=== PATIENT | male | born 1975 | race Caucasian/White ===

== ENCOUNTER 2016-06-23 21:31 | Emergency (ER) | payer OTHER ==
[2016-06-23] MEDS ORDERED: NITROGLYCERIN 2% OINT 1 GM *U/D* PKT As Ordered ONE (21:55)
[2016-06-23 22:23] LABS: BASO # 0.1 K/mm3 (0.0-0.2); BASO % 0.8 % (0.0-1.0); EOS # 0.1 K/mm3 (0.0-0.50); EOS % 1.5 % (0.0-3.0); LARGE UNSTAINED CELL # 0.2 K/mm3 (0.0-0.4); LARGE UNSTAINED CELL % 1.8 % (0.0-4.0); LYMPH # 2.5 K/mm3 (1.5-4.5); LYMPH % 27.9 % (24.0-44.0); MEAN CORPUSCULAR HEMOGLOBIN 28.4 pg (27.0-33.0); MEAN CORPUSCULAR HGB CONC 34.2 g/dl (32.0-36.5); MONO # 0.6 K/mm3 (0.0-0.8); MONO % 6.7 % (0.0-5.0); NEUTROPHILS # 5.2 K/mm3 (1.8-7.7); NEUTROPHILS % 61.4 % (36.0-66.0); PLATELET COUNT, AUTOMATED 220 k/mm3 (150-450); RED CELL DISTRIBUTION WIDTH 12.4 % (11.5-14.5); WHITE BLOOD COUNT 8.4 K/mm3 (4.0-10.0)
[2016-06-23] MEDS ORDERED: LABETALOL HCL 100 MG/20 ML VIAL As Ordered ONE (22:27)
[2016-06-23 22:36] LABS: ANION GAP 10 MEQ/L (8-16); BLOOD UREA NITROGEN 23 MG/DL (7-18); CALCIUM LEVEL 9.2 MG/DL (8.5-10.1); CARBON DIOXIDE LEVEL 26 MEQ/L (21-32); CHLORIDE LEVEL 104 MEQ/L (98-107); CREATININE FOR GFR 1.25 MG/DL (0.70-1.30); GLOMERULAR FILTRATION RATE > 60.0 (>60); GLUCOSE, FASTING 117 MG/DL (70-105); MAGNESIUM LEVEL 1.8 MG/DL (1.8-2.4); PHOSPHORUS LEVEL 3.5 MG/DL (2.5-4.9); POTASSIUM SERUM 3.5 MEQ/L (3.5-5.1); SODIUM LEVEL 140 MEQ/L (136-145)
[2016-06-24] MEDS ORDERED: LABETALOL 100 MG TAB As Ordered ONE (01:33)
--- NOTE | 2016-06-24 01:45 | EDDOCDS ---
Nurse's Notes [facility] Name: Jeff Olivas Age: 41 yrs Sex: Male : 1975 Arrival Date: 06/23/2016 Time: 21:31 Bed 11 Private MD: Orlando Araya Diagnosis: Essential (primary) hypertension-Hypertensive Urgency;Chest pain, unspecified;Other chest pain Presentation: 06/23 21:40 Presenting complaint: Patient states: Chest pain that started at 1800 tonigjht at [facility] work--does not radiate. Also blood pressure is high. Aspirin was not taken prior to arrival. Adult Sepsis Screening: The patient does not have new or worsening altered mentation. Patient's respiratory rate is less than 22. Systolic blood pressure is greater than 100. Patient has a qSOFA score of 0- Negative Sepsis Screen. Suicide/Homicide risk assessment- the patient denies having any suicidal and/or homicidal ideations and does not present with any other emotional, behavioral or mental health complaints. 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 Transition of care: patient was not received from another setting of care. 21:40 Acuity: HEIDI Level 2 [facility] 21:40 Method Of Arrival: Walkin/Carried/Asstd [facility] Triage Assessment: 21:44 General: Appears uncomfortable, Behavior is cooperative. Pain: Location: anterior mcp aspect of left upper chest Pain currently is 3 out of 10 on a pain scale. HIV screening NA for this visit Offered previously. Neurological: No deficits noted. Cardiovascular: Rhythm is sinus rhythm No ectopy. Chest pain is described as mild, radiates Does not radiate. episodes are continuous began 4 hours prior to arrival. Respiratory: Airway is patent Respiratory effort is even, unlabored. Derm: Skin is pink, warm & dry. Historical: - Allergies: no known allergies; - Home Meds: 1. lisinopril 40 mg Oral tab 2 tab once daily 2. metoprolol tartrate 50 mg Oral tab 1 tab once daily 3. hydrochlorothiazide 25 mg Oral tab 1 tab once daily - PMHx: Hypertension; - Social history: Smoking status: other No barriers to communication noted, The patient speaks fluent Chinese. - Family history: Not pertinent. - : The pt / caregiver states he / she is not on anticoagulants. Home medication list is obtained from the patient. - Exposure Risk Screening:: None identified. Screenin:01 Screening information is obtained from the patient. Fall risk: No risks identified. af2 Assistance ADL's: requires no assistance with activities of daily living. Abuse/DV Screen: The patient / caregiver reports he/she is: not in a situation that causes fear, pain or injury. Nutritional screening: No deficits noted. Advance Directives: Currently, there is no health care proxy. home support is adequate. Assessment: 22:00 General: Appears in no apparent distress, comfortable, Behavior is appropriate for age, af2 cooperative. Neurological: Level of Consciousness is awake, alert, obeys commands, Oriented to person, place, time. Cardiovascular: Capillary refill < 3 seconds in bilateral fingers Heart tones S1 S2 present Rhythm is regular Chest pain is described as Pain is 6 out of 10 on a pain scale. began 4 hours prior to arrival. Respiratory: Airway is patent Respiratory effort is even, unlabored, Respiratory pattern is regular, symmetrical, Breath sounds are clear bilaterally. Derm: Skin is intact, is healthy with good turgor, Skin is normal. 22:32 General: Appears in no apparent distress, comfortable, Behavior is appropriate for age, af2 cooperative. Neurological: Level of Consciousness is awake, alert, obeys commands, Oriented to person, place, time. Cardiovascular: Rhythm is regular. Respiratory: Airway is patent Respiratory effort is even, unlabored. Derm: Skin is normal. 23:30 General: Appears in no apparent distress, comfortable, Behavior is appropriate for age, af2 cooperative. Neurological: Level of Consciousness is awake, alert, obeys commands, Oriented to person, place, time. Cardiovascular: Rhythm is regular. Respiratory: Airway is patent Respiratory effort is even, unlabored. Derm: Skin is intact, is healthy with good turgor, Skin is normal. 06/24 00:30 General: Appears in no apparent distress, Behavior is cooperative. Cardiovascular: af2 Rhythm is sinus rhythm Chest pain is denied. 01:42 General: Appears in no apparent distress, comfortable, Behavior is appropriate for age, af2 cooperative. Neurological: Level of Consciousness is awake, alert, obeys commands, Oriented to person, place, time. Cardiovascular: Rhythm is sinus rhythm No ectopy. Respiratory: Airway is patent Respiratory effort is even, unlabored. Derm: Skin is intact, is healthy with good turgor, Skin is normal. Vital Signs: 06/23 21:34 BP 221 / 131 RA Sitting (auto/lg); Pulse 102; Resp 16; Temp 98.9(O); Pulse Ox 97% on sew R/A; Weight 117.93 kg; Height 5 ft. 11 in. (180.34 cm); Pain 07/21; 21:35 BP 205 / 141 LA Sitting (auto/lg); sew 21:54 BP 192 / 128 (auto/); af2 21:54 Pulse 90 MON; Resp 18 S; Pulse Ox 92% on R/A; af2 22:09 BP 176 / 106 (auto/); af2 22:09 Pulse 84 MON; Resp 18 S; Pulse Ox 95% on R/A; af2 22:24 BP 168 / 95 (auto/); af2 22:24 Pulse 88 MON; Resp 18 S; Pulse Ox 96% on R/A; af2 22:39 BP 153 / 87 (auto/); af2 22:39 Pulse 80 MON; Resp 18 S; Pulse Ox 93% on R/A; af2 22:54 BP 157 / 90 (auto/); af2 22:54 Pulse 80 MON; Resp 18 S; Pulse Ox 95% on R/A; af2 23:09 BP 160 / 100 (auto/); af2 23:09 Pulse 76 MON; Resp 18 S; Pulse Ox 95% on R/A; af2 23:24 BP 160 / 104 (auto/); af2 23:24 Pulse 76 MON; Resp 18 S; Pulse Ox 94% on R/A; af2 23:39 BP 142 / 92 (auto/); af2 23:39 Pulse 74 MON; Resp 18 S; Pulse Ox 95% on R/A; af2 23:54 BP 156 / 93 (auto/); af2 23:54 Pulse 78 MON; Resp 18 S; Pulse Ox 94% on R/A; af2 06/24 00:09 BP 145 / 87 (auto/); af2 00:09 Pulse 78 MON; Resp 18 S; Pulse Ox 95% on R/A; af2 01:44 BP 144 / 84; Pulse 78; Resp 18 S; Temp 98.0(TE); Pulse Ox 96% on R/A; af2 06/23 21:34 Body Mass Index 36.26 (117.93 kg, 180.34 cm) sew Vitals: 06/23 21:34 Log In Time: June 23, 2016 at 21:31. RN notified that patient meets Red Flag sew criteria. ED Course: 21:33 Patient visited by Joselyn Domingo. sew 21:33 Patient moved to Waiting sew 21:34 Orlando Araya is Private Physician. sew 21:35 Patient visited by Joselyn Domingo. sew 21:36 Avril Torres RN is Primary Nurse. sew 21:36 Patient moved to 11 sew 21:42 Triage Initiated mcp 21:45 Franklyn Garcia DO is Attending Physician. mm11 21:45 Patient visited by Franklyn Garcia DO. mm11 21:45 Patient visited by Michelle Ortiz RN. mcp 21:46 Ayad Sutherland DO is PHCP. gk1 21:47 EKG done. (by ED staff). Reviewed by Franklyn Garcia DO. jmv 22:01 Patient visited by Avril Torres RN. af2 22:01 Inserted saline lock: 18 gauge in left antecubital area and blood collected. The af2 patient tolerated the procedure well. 22:12 Patient visited by Ayad Sutherland DO. gk1 22:12 Patient visited by Ayad Sutherland DO. gk1 22:16 Patient visited by Avril Torres RN. af2 22:33 Patient visited by Avril Torres RN. af2 22:50 Patient visited by Ayad Sutherland DO. gk1 23:04 [facility] Payment Agreement was scanned into Verac[employer] and attached to record. gjb 23:53 Patient visited by Franklyn Garcia DO. mm11 02 00:00 Patient visited by Avril Torres RN. af2 00:11 EKG done. (by ED staff). Reviewed by Franklyn Garcia DO. jmv 00:15 CARDIAC INJURY PROFILE Sent. af2 00:15 TROPONIN Sent. af2 00:17 Patient visited by Avril Torres RN. af2 00:17 Patient visited by Homer Haney PCA. jmv 01:04 Patient visited by Avril Torres RN. af2 01:11 Mer Ramirez is Referral Physician. gk1 01:12 Grayson Camarena MD is Referral Physician. gk1 01:43 Discontinued IV lock intact, bleeding controlled, pressure dressing applied, No af2 redness/swelling at site. No procedures done that require assistance. 01:45 The patient / caregiver is instructed regarding the plan of care and ED course. Cardiac af2 monitor on. Pulse ox on. NIBP on. Administered Medications: 06/23 21:59 Drug: Nitro-Bid 1 inches [Nitro-Bid 2 % transdermal ointment (1 inches)] Route: af2 Transdermal; Site: anterior chest wall; 22:32 Drug: Labetalol 10 mg [labetalol 5 mg/mL intravenous solution (2 mL)] Route: IVP; Rate: af2 bolus; Infused Over: 2 mins; Site: left antecubital; 06/24 01:41 Drug: Labetalol 100 mg [labetalol 100 mg tablet (1 tabs)] Route: PO; af2 Order Results: Lab Order: Basic Metabolic Profile; SPEC'M 06/23/16 21:46 Test: GLUCOSE, FASTING; Value: 117; Range: 70-105; Abnormal: Above high normal; Units: MG/DL; Status: F Test: BLOOD UREA NITROGEN; Value: 23; Range: 7-18; Abnormal: Above high normal; Units: MG/DL; Status: F Test: CREATININE FOR GFR; Value: 1.25; Range: 0.70-1.30; Units: MG/DL; Status: F Test: GLOMERULAR FILTRATION RATE; Value: > 60.0; Range: >60; Status: F Test: SODIUM LEVEL; Value: 140; Range: 136-145; Units: MEQ/L; Status: F Test: POTASSIUM SERUM; Value: 3.5; Range: 3.5-5.1; Units: MEQ/L; Status: F Test: CHLORIDE LEVEL; Value: 104; Range: 98-107; Units: MEQ/L; Status: F Test: CARBON DIOXIDE LEVEL; Value: 26; Range: 21-32; Units: MEQ/L; Status: F Test: ANION GAP; Value: 10; Range: 8-16; Units: MEQ/L; Status: F Test: CALCIUM LEVEL; Value: 9.2; Range: 8.5-10.1; Units: MG/DL; Status: F Test Note: ; Units are mL/min/1.73 m2 Chronic Kidney Disease Staging per NKF: Stage I & II GFR >=60 Normal to Mildly Decreased Stage III GFR 30-59 Moderately Decreased Stage IV GFR 15-29 Severely Decreased Stage V GFR <15 Very Little GFR Left ESRD GFR <15 on LEARNING SUPPORT RESOURCE ROOM TEACHER Lab Order: CBC with Diff; [facility]EN[facility] 06/23/16 21:46 Test: WHITE BLOOD COUNT; Value: 8.4; Range: 4.0-10.0; Units: K/mm3; Status: F Test: RED BLOOD COUNT; Value: 5.06; Range: 4.30-6.10; Units: M/mm3; Status: F Test: HEMOGLOBIN; Value: 14.3; Range: 14.0-18.0; Units: g/dl; Status: F Test: HEMATOCRIT; Value: 42.0; Range: 42.0-52.0; Units: %; Status: F Test: MEAN CORPUSCULAR VOLUME; Value: 83.0; Range: 80.0-96.0; Units: fl; Status: F Test: MEAN CORPUSCULAR HEMOGLOBIN; Value: 28.4; Range: 27.0-33.0; Units: pg; Status: F Test: MEAN CORPUSCULAR HGB CONC; Value: 34.2; Range: 32.0-36.5; Units: g/dl; Status: F Test: RED CELL DISTRIBUTION WIDTH; Value: 12.4; Range: 11.5-14.5; Units: %; Status: F Test: PLATELET COUNT, AUTOMATED; Value: 220; Range: 150-450; Units: k/mm3; Status: F Test: NEUTROPHILS %; Value: 61.4; Range: 36.0-66.0; Units: %; Status: F Test: LYMPH %; Value: 27.9; Range: 24.0-44.0; Units: %; Status: F Test: MONO %; Value: 6.7; Range: 0.0-5.0; Abnormal: Above high normal; Units: %; Status: F Test: EOS %; Value: 1.5; Range: 0.0-3.0; Units: %; Status: F Test: BASO %; Value: 0.8; Range: 0.0-1.0; Units: %; Status: F Test: LARGE UNSTAINED CELL %; Value: 1.8; Range: 0.0-4.0; Units: %; Status: F Test: NEUTROPHILS #; Value: 5.2; Range: 1.8-7.7; Units: K/mm3; Status: F Test: LYMPH #; Value: 2.5; Range: 1.5-4.5; Units: K/mm3; Status: F Test: MONO #; Value: 0.6; Range: 0.0-0.8; Units: K/mm3; Status: F Test: EOS #; Value: 0.1; Range: 0.0-0.50; Units: K/mm3; Status: F Test: BASO #; Value: 0.1; Range: 0.0-0.2; Units: K/mm3; Status: F Test: LARGE UNSTAINED CELL #; Value: 0.2; Range: 0.0-0.4; Units: K/mm3; Status: F Lab Order: Cardiac Injury Profile; [facility]' 06/23/16 21:46 Test: CPK CREATINE PHOSPHOKINASE; Value: 120; Range: 39-308; Units: U/L; Status: F Test: CK-MB VALUE MASS; Value: 1.3; Range: 0.0-3.6; Units: NG/ML; Status: F Test: MB/CK RELATIVE INDEX; Value: 1.08; Range: < OR =4; Status: F Test Note: ; DIAGNOSIS CRITERIA MMB ng/ml Relative Index (RI) NON-AMI < or = 5 N/A LUCERO ZONE > 5 < or = 4 AMI > 5 > 4 Lab Order: Troponin; [facility]' 06/23/16 21:46 Test: TROPONIN I; Value: < 0.02; Range: < 0.10; Units: NG/ML; Status: F Test Note: ; Troponin I Reference Interval for [place] LOCI: 99th Percentile= 0.00-0.045 ng/ml Risk Stratification: <= 0.10 ng/ml Decreased Risk for Adverse Clinical Events. 0.10-1.50 ng/ml Increased Risk for Adverse Clinical Events. Evaluation of additional criterion and/or repeat testing in 2-6 hours is suggested to rule out myocardial damage. >= 1.50 ng/ml Indicative of Myocardial Injury. Lab Order: Magnesium Level; [facility] 06/23/16 21:46 Test: MAGNESIUM LEVEL; Value: 1.8; Range: 1.8-2.4; Units: MG/DL; Status: F Lab Order: Phosphorous Level; [facility] 06/23/16 21:46 Test: PHOSPHORUS LEVEL; Value: 3.5; Range: 2.5-4.9; Units: MG/DL; Status: F Lab Order: CARDIAC INJURY PROFILE; [facility] 06/23/16 00:08 Test: CPK CREATINE PHOSPHOKINASE; Value: 106; Range: 39-308; Units: U/L; Status: F Test: CK-MB VALUE MASS; Value: 1.0; Range: 0.0-3.6; Units: NG/ML; Status: F Test: MB/CK RELATIVE INDEX; Value: 0.94; Range: < OR =4; Status: F Test Note: ; DIAGNOSIS CRITERIA MMB ng/ml Relative Index (RI) NON-AMI < or = 5 N/A LUCERO ZONE > 5 < or = 4 AMI > 5 > 4 Lab Order: TROPONIN; [facility] 06/23/16 00:08 Test: TROPONIN I; Value: < 0.02; Range: < 0.10; Units: NG/ML; Status: F Test Note: ; Troponin I Reference Interval for [place] LOCI: 99th Percentile= 0.00-0.045 ng/ml Risk Stratification: <= 0.10 ng/ml Decreased Risk for Adverse Clinical Events. 0.10-1.50 ng/ml Increased Risk for Adverse Clinical Events. Evaluation of additional criterion and/or repeat testing in 2-6 hours is suggested to rule out myocardial damage. >= 1.50 ng/ml Indicative of Myocardial Injury. Outcome: 01:13 Discharge ordered by Provider. gk1 01:44 Discharge Assessment: Patient awake, alert and oriented x 3. No cognitive and/or af2 functional deficits noted. Patient verbalized understanding of disposition instructions. patient administered narcotics - no. The following High Risk Discharge criteria are identified: None. Discharged to home ambulatory. Condition: stable. Discharge instructions given to patient, Instructed on discharge instructions, follow up and referral plans. medication usage, Demonstrated understanding of instructions, medications, Pt was receptive of discharge instructions/ teaching. No special radiology studies were completed. Property :Personal belongings accompany Pt. 01:45 Patient left the ED. af2 Signatures: Michelle Ortiz, RN RN Franklyn Kennedy, DO DO mm11 Joselyn Domingo AmberRN RN af2 Pamela Chacon Jose, AIDEN LEASING DIRECTOR maddi Sutherland, Ayad, DO DO gk1 MTDD
--- NOTE | 2016-06-24 01:45 | EDDOCDS ---
Physician Documentation [facility] Name: Jeff Olivas Age: 41 yrs Sex: Male : 1975 Arrival Date: 06/23/2016 Time: 21:31 Bed 11 Private MD: Orlando Araya Disposition: 06/24 01:18 I have independently interviewed and examined the patient, and I agree with the mm11 investigation, diagnosis and treatment plan as documented by the Resident. Disposition: 06/24/16 01:13 Discharged to Home/Self Care. Impression: Essential (primary) hypertension - Hypertensive Urgency, Chest pain, unspecified, Other chest pain. - Condition is Stable. - Discharge Instructions: Nonspecific Chest Pain, Hypertension, Nonspecific Chest Pain, [id number], Hypertension, [id number], DASH Eating Plan. - Prescriptions for labetalol 100 mg Oral tablet - take 1 tablet by ORAL route 2 times per day; 60 tablet. - Medication Reconciliation, Local Pharmacy Hours form. - Follow up: Mer Ramirez; When: Call to arrange an appointment; Reason: Recheck today's complaints, Continuance of care, To establish care. Follow up: Grayson Camarena MD; When: 1 week; Reason: Recheck today's complaints, Continuance of care. - Problem is new. - Symptoms have improved. - Notes: Follow up with PCP within 1 week and call to arrange an appointment with Cardiology in 1 week for further evaluation and management. Come back to the ED, if any worsening of your condition. Historical: - Allergies: no known allergies; - Home Meds: 1. lisinopril 40 mg Oral tab 2 tab once daily 2. metoprolol tartrate 50 mg Oral tab 1 tab once daily 3. hydrochlorothiazide 25 mg Oral tab 1 tab once daily - PMHx: Hypertension; - Social history: Smoking status: other No barriers to communication noted, The patient speaks fluent Kyrgyz. - Family history: Not pertinent. - : The pt / caregiver states he / she is not on anticoagulants. Home medication list is obtained from the patient. - Exposure Risk Screening:: None identified. Vital Signs: 06/23 21:34 BP 221 / 131 RA Sitting (auto/lg); Pulse 102; Resp 16; Temp 98.9(O); Pulse Ox 97% on sew R/A; Weight 117.93 kg / 259.99 lbs; Height 5 ft. 11 in. (180.34 cm); Pain 3/; 21:35 BP 205 / 141 LA Sitting (auto/lg); sew 21:54 BP 192 / 128 (auto/); af2 21:54 Pulse 90 MON; Resp 18 S; Pulse Ox 92% on R/A; af2 22:09 BP 176 / 106 (auto/); af2 22:09 Pulse 84 MON; Resp 18 S; Pulse Ox 95% on R/A; af2 22:24 BP 168 / 95 (auto/); af2 22:24 Pulse 88 MON; Resp 18 S; Pulse Ox 96% on R/A; af2 22:39 BP 153 / 87 (auto/); af2 22:39 Pulse 80 MON; Resp 18 S; Pulse Ox 93% on R/A; af2 22:54 BP 157 / 90 (auto/); af2 22:54 Pulse 80 MON; Resp 18 S; Pulse Ox 95% on R/A; af2 23:09 BP 160 / 100 (auto/); af2 23:09 Pulse 76 MON; Resp 18 S; Pulse Ox 95% on R/A; af2 23:24 BP 160 / 104 (auto/); af2 23:24 Pulse 76 MON; Resp 18 S; Pulse Ox 94% on R/A; af2 23:39 BP 142 / 92 (auto/); af2 23:39 Pulse 74 MON; Resp 18 S; Pulse Ox 95% on R/A; af2 23:54 BP 156 / 93 (auto/); af2 23:54 Pulse 78 MON; Resp 18 S; Pulse Ox 94% on R/A; af2 06/24 00:09 BP 145 / 87 (auto/); af2 00:09 Pulse 78 MON; Resp 18 S; Pulse Ox 95% on R/A; af2 01:44 BP 144 / 84; Pulse 78; Resp 18 S; Temp 98.0(TE); Pulse Ox 96% on R/A; af2 06/23 21:34 Body Mass Index 36.26 (117.93 kg, 180.34 cm) sew MDM: 06/23 21:40 ECG WITH READING ER PHYS+CARDIAG ordered. EDMS 21:47 Nitro-Bid Ointment 2 % 1 inches Transdermal once ordered. mm11 22:13 Labetalol 10 mg IVP at bolus once over 2 mins ordered. gk1 22:16 Team Cdl Driver/Pulse Ox/q 30 min VS ordered. gk1 22:16 IV Saline Lock ordered. gk1 22:16 Rhythm Strip to chart ordered. gk1 22:16 Undress patient appropriately for examination ordered. gk1 22:17 Basic Metabolic Profile Ordered. EDMS 22:17 CBC with Diff Ordered. EDMS 22:17 Cardiac Injury Profile Ordered. EDMS 22:17 Troponin Ordered. EDMS 22:17 Magnesium Level Ordered. EDMS 22:17 Phosphorous Level Ordered. EDMS 22:17 Creatine Phosphokinase Ordered. EDMS 22:18 Chest, 2 View (pa\E\lat) Ordered. EDMS 22:50 Basic Metabolic Profile Reviewed. gk1 22:50 CBC with Diff Reviewed. gk1 22:50 Cardiac Injury Profile Reviewed. gk1 22:50 Troponin Reviewed. gk1 22:50 Magnesium Level Reviewed. gk1 22:50 Phosphorous Level Reviewed. gk1 23:02 Financial registration complete. [facility] 23:04 [facility] Payment Agreement was scanned into [employer] and attached to record. gjb 23:57 Repeat EKG (put time details section) ordered. mm11 23:57 Redraw CIP &Troponin (put time in details section) ordered. mm11 06/24 00:00 Redraw CIP &Troponin (put time in details section) complete. jlm 00:00 Repeat EKG (put time details section) complete. jlm 00:00 ELECTROCARDIOGRAM ADULT ordered. EDMS 00:01 CARDIAC INJURY PROFILE Ordered. EDMS 00:01 TROPONIN Ordered. EDMS 00:47 TROPONIN Reviewed. gk1 00:55 TROPONIN Reviewed. gk1 00:55 CARDIAC INJURY PROFILE Reviewed. gk1 01:04 Labetalol 100 mg PO once ordered. gk1 Administered Medications: 06/23 21:59 Drug: Nitro-Bid 1 inches [Nitro-Bid 2 % transdermal ointment (1 inches)] Route: af2 Transdermal; Site: anterior chest wall; 22:32 Drug: Labetalol 10 mg [labetalol 5 mg/mL intravenous solution (2 mL)] Route: IVP; Rate: af2 bolus; Infused Over: 2 mins; Site: left antecubital; 06/24 01:41 Drug: Labetalol 100 mg [labetalol 100 mg tablet (1 tabs)] Route: PO; af2 Signatures: Dispatcher [employer] Michelle Gupta, Franklyn Brown RN, mcp, DO mm11 Monica Walsh, Rock Singer Unit Avril Hernandez RN RN af2 Pamela Chacon Gurpreet, DO DO gk1 The chart was reviewed and I authenticate all verbal orders and agree with the evaluation and treatment provided.Attachments: 06/23 23:04 [facility] Payment Agreement tacho MTDD
--- NOTE | 2016-06-24 08:54 | ECGEPIP ---
Stationary ECG Study [facility] Test Date: 2016-06-24 Pat Name: JESE PAGAN Department: Room: - Gender: M Terra Cotta Mold Maker: lashell : 1975 Requested By: EMERGENCY ROOM Order Number: [id number] Reading MD: Debby Dougherty Measurements Intervals [place] Rate: 70 P: 50 SD: 183 QRS: -5 QRSD: 103 T: 75 QT: 412 QTc: 445 Interpretive Statements SINUS RHYTHM T-WAVE ABNORMALITY LEFT AXIS NO PRIOR Electronically Signed On 06-24-2016 8:53:48 EST by Debby Dougherty
--- NOTE | 2016-06-24 10:28 | REP ---
CHEST PA AND LATERAL: 06/23/2016. Clinical history: Chest pain. Findings: No prior study. Two view show lungs well inflated and without infiltrate, effusion, atelectasis or mass. The heart, mediastinal and hilar contours are normal. There is no free air, focal bone lesion or pneumothorax. Impression: 1. No acute cardiopulmonary change. Signed by Aquilino Nicole MD 06/24/2016 07:31 P
--- NOTE | 2016-06-24 12:54 | ECGEPIP ---
Stationary ECG Study [facility] - ED Test Date: 2016-06-23 Pat Name: JESE PAGAN Department: Room: - Gender: M Edi Developer: lashell : 1975 Requested By: PARRISH Abreu Order Number: [id number] Reading MD: Mayra Roach Measurements Intervals [place] Rate: 98 P: 47 KS: 212 QRS: -15 QRSD: 105 T: 53 QT: 352 QTc: 450 Interpretive Statements SINUS RHYTHM WITH FIRST DEGREE AV BLOCK LAD BASELINE WANDERING MAY AFFECT READING NO OLD ECG FOR COMPARISON Electronically Signed On 06-24-2016 12:54:22 EST by Mayra Roach
--- NOTE | 2016-06-26 02:46 | EDDOCDS ---
Physician Documentation [facility] Name: Jeff Olivas Age: 41 yrs Sex: Male : 1975 Arrival Date: 06/23/2016 Time: 21:31 Bed 11 Private MD: Orlando Araya Disposition: 06/24 01:18 I have independently interviewed and examined the patient, and I agree with the mm11 investigation, diagnosis and treatment plan as documented by the Resident. Disposition: 06/24/16 01:13 Discharged to Home/Self Care. Impression: Essential (primary) hypertension - Hypertensive Urgency, Chest pain, unspecified, Other chest pain. - Condition is Stable. - Discharge Instructions: Nonspecific Chest Pain, Hypertension, Nonspecific Chest Pain, [id number], Hypertension, Unij-ty-[id number], DASH Eating Plan. - Prescriptions for labetalol 100 mg Oral tablet - take 1 tablet by ORAL route 2 times per day; 60 tablet. - Medication Reconciliation, Local Pharmacy Hours form. - Follow up: Mer Ramirez; When: Call to arrange an appointment; Reason: Recheck today's complaints, Continuance of care, To establish care. Follow up: Grayson Camarena MD; When: 1 week; Reason: Recheck today's complaints, Continuance of care. - Problem is new. - Symptoms have improved. - Notes: Follow up with PCP within 1 week and call to arrange an appointment with Cardiology in 1 week for further evaluation and management. Come back to the ED, if any worsening of your condition. Historical: - Allergies: no known allergies; - Home Meds: 1. lisinopril 40 mg Oral tab 2 tab once daily 2. metoprolol tartrate 50 mg Oral tab 1 tab once daily 3. hydrochlorothiazide 25 mg Oral tab 1 tab once daily - PMHx: Hypertension; - Social history: Smoking status: other No barriers to communication noted, The patient speaks fluent Kinyarwanda. - Family history: Not pertinent. - : The pt / caregiver states he / she is not on anticoagulants. Home medication list is obtained from the patient. - Exposure Risk Screening:: None identified. Vital Signs: 06/23 21:34 BP 221 / 131 RA Sitting (auto/lg); Pulse 102; Resp 16; Temp 98.9(O); Pulse Ox 97% on sew R/A; Weight 117.93 kg / 259.99 lbs; Height 5 ft. 11 in. (180.34 cm); Pain 3/; 21:35 BP 205 / 141 LA Sitting (auto/lg); sew 21:54 BP 192 / 128 (auto/); af2 21:54 Pulse 90 MON; Resp 18 S; Pulse Ox 92% on R/A; af2 22:09 BP 176 / 106 (auto/); af2 22:09 Pulse 84 MON; Resp 18 S; Pulse Ox 95% on R/A; af2 22:24 BP 168 / 95 (auto/); af2 22:24 Pulse 88 MON; Resp 18 S; Pulse Ox 96% on R/A; af2 22:39 BP 153 / 87 (auto/); af2 22:39 Pulse 80 MON; Resp 18 S; Pulse Ox 93% on R/A; af2 22:54 BP 157 / 90 (auto/); af2 22:54 Pulse 80 MON; Resp 18 S; Pulse Ox 95% on R/A; af2 23:09 BP 160 / 100 (auto/); af2 23:09 Pulse 76 MON; Resp 18 S; Pulse Ox 95% on R/A; af2 23:24 BP 160 / 104 (auto/); af2 23:24 Pulse 76 MON; Resp 18 S; Pulse Ox 94% on R/A; af2 23:39 BP 142 / 92 (auto/); af2 23:39 Pulse 74 MON; Resp 18 S; Pulse Ox 95% on R/A; af2 23:54 BP 156 / 93 (auto/); af2 23:54 Pulse 78 MON; Resp 18 S; Pulse Ox 94% on R/A; af2 06/24 00:09 BP 145 / 87 (auto/); af2 00:09 Pulse 78 MON; Resp 18 S; Pulse Ox 95% on R/A; af2 01:44 BP 144 / 84; Pulse 78; Resp 18 S; Temp 98.0(TE); Pulse Ox 96% on R/A; af2 06/23 21:34 Body Mass Index 36.26 (117.93 kg, 180.34 cm) sew MDM: 06/23 21:40 ECG WITH READING ER PHYS+CARDIAG ordered. EDMS 21:47 Nitro-Bid Ointment 2 % 1 inches Transdermal once ordered. mm11 22:13 Labetalol 10 mg IVP at bolus once over 2 mins ordered. gk1 22:16 Flight Control Manager/Pulse Ox/q 30 min VS ordered. gk1 22:16 IV Saline Lock ordered. gk1 22:16 Rhythm Strip to chart ordered. gk1 22:16 Undress patient appropriately for examination ordered. gk1 22:17 Basic Metabolic Profile Ordered. EDMS 22:17 CBC with Diff Ordered. EDMS 22:17 Cardiac Injury Profile Ordered. EDMS 22:17 Troponin Ordered. EDMS 22:17 Magnesium Level Ordered. EDMS 22:17 Phosphorous Level Ordered. EDMS 22:17 Creatine Phosphokinase Ordered. EDMS 22:18 Chest, 2 View (pa\E\lat) Ordered. EDMS 22:50 Basic Metabolic Profile Reviewed. gk1 22:50 CBC with Diff Reviewed. gk1 22:50 Cardiac Injury Profile Reviewed. gk1 22:50 Troponin Reviewed. gk1 22:50 Magnesium Level Reviewed. gk1 22:50 Phosphorous Level Reviewed. gk1 23:02 Financial registration complete. b 23:04 [facility] Payment Agreement was scanned into [employer] and attached to record. gjb 23:57 Repeat EKG (put time details section) ordered. mm11 23:57 Redraw CIP &Troponin (put time in details section) ordered. mm11 0211 00:00 Redraw CIP &Troponin (put time in details section) complete. jlm 00:00 Repeat EKG (put time details section) complete. jlm 00:00 ELECTROCARDIOGRAM ADULT ordered. EDMS 00:01 CARDIAC INJURY PROFILE Ordered. EDMS 00:01 TROPONIN Ordered. EDMS 00:47 TROPONIN Reviewed. gk1 00:55 TROPONIN Reviewed. gk1 00:55 CARDIAC INJURY PROFILE Reviewed. gk1 01:04 Labetalol 100 mg PO once ordered. gk1 10:15 T-Sheet-- Draft Copy was scanned into [employer] and attached to record. gb 16:38 ECG/EKG was scanned into [employer] and attached to record. gb 16:38 Trend VS was scanned into [employer] and attached to record. gb Administered Medications: 06/23 21:59 Drug: Nitro-Bid 1 inches [Nitro-Bid 2 % transdermal ointment (1 inches)] Route: af2 Transdermal; Site: anterior chest wall; 22:32 Drug: Labetalol 10 mg [labetalol 5 mg/mL intravenous solution (2 mL)] Route: IVP; Rate: af2 bolus; Infused Over: 2 mins; Site: left antecubital; 06/24 01:41 Drug: Labetalol 100 mg [labetalol 100 mg tablet (1 tabs)] Route: PO; af2 Signatures: Dispatcher [employer] Michelle Gupta, Kamryn Davila RN, mcp, Robert Reg gb Franklyn Garcia, DO mm11 Monica Walsh, Dynamics Ax Technical Architect Unit Avril Hernandez RN RN af2 Pamela Chacon gjb Ayad Sutherland, DO DO gk1 The chart was reviewed and I authenticate all verbal orders and agree with the evaluation and treatment provided.Attachments: 06/23 23:04 [facility] Payment Agreement gjb 06/24 10:15 T-Sheet-- Draft Copy gb 16:38 ECG/EKG gb Chart Complete MTDD
--- NOTE | 2016-06-26 02:46 | EDDOCDS ---
Nurse's Notes [facility] Name: Jese Olivas Age: 41 yrs Sex: Male : 1975 Arrival Date: 06/23/2016 Time: 21:31 Bed 11 Private MD: Orlando Araya Diagnosis: Essential (primary) hypertension-Hypertensive Urgency;Chest pain, unspecified;Other chest pain Presentation: 06/23 21:40 Presenting complaint: Patient states: Chest pain that started at [address] at [facility] work--does not radiate. Also blood pressure is high. Aspirin was not taken prior to arrival. Adult Sepsis Screening: The patient does not have new or worsening altered mentation. Patient's respiratory rate is less than 22. Systolic blood pressure is greater than 100. Patient has a qSOFA score of 0- Negative Sepsis Screen. Suicide/Homicide risk assessment- the patient denies having any suicidal and/or homicidal ideations and does not present with any other emotional, behavioral or mental health complaints. Status: Patient is not a pharmaceutical service representative or dependent. Transition of care: patient was not received from another setting of care. 21:40 Acuity: HEIDI Level 2 [facility] 21:40 Method Of Arrival: Walkin/Carried/Asstd [facility] Triage Assessment: 21:44 General: Appears uncomfortable, Behavior is cooperative. Pain: Location: anterior mcp aspect of left upper chest Pain currently is 3 out of 10 on a pain scale. HIV screening NA for this visit Offered previously. Neurological: No deficits noted. Cardiovascular: Rhythm is sinus rhythm No ectopy. Chest pain is described as mild, radiates Does not radiate. episodes are continuous began 4 hours prior to arrival. Respiratory: Airway is patent Respiratory effort is even, unlabored. Derm: Skin is pink, warm & dry. Historical: - Allergies: no known allergies; - Home Meds: 1. lisinopril 40 mg Oral tab 2 tab once daily 2. metoprolol tartrate 50 mg Oral tab 1 tab once daily 3. hydrochlorothiazide 25 mg Oral tab 1 tab once daily - PMHx: Hypertension; - Social history: Smoking status: other No barriers to communication noted, The patient speaks fluent Swedish. - Family history: Not pertinent. - : The pt / caregiver states he / she is not on anticoagulants. Home medication list is obtained from the patient. - Exposure Risk Screening:: None identified. Screenin:01 Screening information is obtained from the patient. Fall risk: No risks identified. af2 Assistance ADL's: requires no assistance with activities of daily living. Abuse/DV Screen: The patient / caregiver reports he/she is: not in a situation that causes fear, pain or injury. Nutritional screening: No deficits noted. Advance Directives: Currently, there is no health care proxy. home support is adequate. Assessment: 22:00 General: Appears in no apparent distress, comfortable, Behavior is appropriate for age, af2 cooperative. Neurological: Level of Consciousness is awake, alert, obeys commands, Oriented to person, place, time. Cardiovascular: Capillary refill < 3 seconds in bilateral fingers Heart tones S1 S2 present Rhythm is regular Chest pain is described as Pain is 6 out of 10 on a pain scale. began 4 hours prior to arrival. Respiratory: Airway is patent Respiratory effort is even, unlabored, Respiratory pattern is regular, symmetrical, Breath sounds are clear bilaterally. Derm: Skin is intact, is healthy with good turgor, Skin is normal. 22:32 General: Appears in no apparent distress, comfortable, Behavior is appropriate for age, af2 cooperative. Neurological: Level of Consciousness is awake, alert, obeys commands, Oriented to person, place, time. Cardiovascular: Rhythm is regular. Respiratory: Airway is patent Respiratory effort is even, unlabored. Derm: Skin is normal. 23:30 General: Appears in no apparent distress, comfortable, Behavior is appropriate for age, af2 cooperative. Neurological: Level of Consciousness is awake, alert, obeys commands, Oriented to person, place, time. Cardiovascular: Rhythm is regular. Respiratory: Airway is patent Respiratory effort is even, unlabored. Derm: Skin is intact, is healthy with good turgor, Skin is normal. 06/24 00:30 General: Appears in no apparent distress, Behavior is cooperative. Cardiovascular: af2 Rhythm is sinus rhythm Chest pain is denied. 01:42 General: Appears in no apparent distress, comfortable, Behavior is appropriate for age, af2 cooperative. Neurological: Level of Consciousness is awake, alert, obeys commands, Oriented to person, place, time. Cardiovascular: Rhythm is sinus rhythm No ectopy. Respiratory: Airway is patent Respiratory effort is even, unlabored. Derm: Skin is intact, is healthy with good turgor, Skin is normal. Vital Signs: 06/23 21:34 BP 221 / 131 RA Sitting (auto/lg); Pulse 102; Resp 16; Temp 98.9(O); Pulse Ox 97% on sew R/A; Weight 117.93 kg; Height 5 ft. 11 in. (180.34 cm); Pain 07/21; 21:35 BP 205 / 141 LA Sitting (auto/lg); sew 21:54 BP 192 / 128 (auto/); af2 21:54 Pulse 90 MON; Resp 18 S; Pulse Ox 92% on R/A; af2 22:09 BP 176 / 106 (auto/); af2 22:09 Pulse 84 MON; Resp 18 S; Pulse Ox 95% on R/A; af2 22:24 BP 168 / 95 (auto/); af2 22:24 Pulse 88 MON; Resp 18 S; Pulse Ox 96% on R/A; af2 22:39 BP 153 / 87 (auto/); af2 22:39 Pulse 80 MON; Resp 18 S; Pulse Ox 93% on R/A; af2 22:54 BP 157 / 90 (auto/); af2 22:54 Pulse 80 MON; Resp 18 S; Pulse Ox 95% on R/A; af2 23:09 BP 160 / 100 (auto/); af2 23:09 Pulse 76 MON; Resp 18 S; Pulse Ox 95% on R/A; af2 23:24 BP 160 / 104 (auto/); af2 23:24 Pulse 76 MON; Resp 18 S; Pulse Ox 94% on R/A; af2 23:39 BP 142 / 92 (auto/); af2 23:39 Pulse 74 MON; Resp 18 S; Pulse Ox 95% on R/A; af2 23:54 BP 156 / 93 (auto/); af2 23:54 Pulse 78 MON; Resp 18 S; Pulse Ox 94% on R/A; af2 06/24 00:09 BP 145 / 87 (auto/); af2 00:09 Pulse 78 MON; Resp 18 S; Pulse Ox 95% on R/A; af2 01:44 BP 144 / 84; Pulse 78; Resp 18 S; Temp 98.0(TE); Pulse Ox 96% on R/A; af2 06/23 21:34 Body Mass Index 36.26 (117.93 kg, 180.34 cm) sew Vitals: 06/23 21:34 Log In Time: June 23, 2016 at 21:31. RN notified that patient meets Red Flag sew criteria. ED Course: 21:33 Patient visited by Joselyn Domingo. sew 21:33 Patient moved to Waiting sew 21:34 Orlando Araya is Private Physician. sew 21:35 Patient visited by Joselyn Domingo. sew 21:36 Avril Torres RN is Primary Nurse. sew 21:36 Patient moved to 11 sew 21:42 Triage Initiated mcp 21:45 Parrish Garcia DO is Attending Physician. mm11 21:45 Patient visited by Parrish Garcia DO. mm11 21:45 Patient visited by Michelle Ortiz RN. mcp 21:46 Ayad Sutherland DO is PHCP. gk1 21:47 EKG done. (by ED staff). Reviewed by Parrish Garcia DO. jmv 22:01 Patient visited by Avril Torres RN. af2 22:01 Inserted saline lock: 18 gauge in left antecubital area and blood collected. The af2 patient tolerated the procedure well. 22:12 Patient visited by Ayad Sutherland DO. gk1 22:12 Patient visited by Ayad Sutherland DO. gk1 22:16 Patient visited by Avril Torres RN. af2 22:33 Patient visited by Avril Torres RN. af2 22:50 Patient visited by Ayad Sutherland DO. gk1 23:04 [facility] Payment Agreement was scanned into bluebird [employer] and attached to record. gjb 23:53 Patient visited by Parrish Garcia DO. mm11 02 00:00 Patient visited by Avril Torres RN. af2 00:11 EKG done. (by ED staff). Reviewed by Parrish Garcia DO. jmv 00:15 CARDIAC INJURY PROFILE Sent. af2 00:15 TROPONIN Sent. af2 00:17 Patient visited by Avril Torres RN. af2 00:17 Patient visited by Homer Haney PCA. jmv 01:04 Patient visited by Avril Torres RN. af2 01:11 Mer Ramirez is Referral Physician. gk1 01:12 Grayson Camarena MD is Referral Physician. gk1 01:43 Discontinued IV lock intact, bleeding controlled, pressure dressing applied, No af2 redness/swelling at site. No procedures done that require assistance. 01:45 The patient / caregiver is instructed regarding the plan of care and ED course. Cardiac af2 monitor on. Pulse ox on. NIBP on. 09:17 ELECTROCARDIOGRAM ADULT Returned. EDMS 10:15 T-Sheet-- Draft Copy was scanned into bluebird [employer] and attached to record. gb 10:42 Chest, 2 View (pa\E\lat) Returned. EDMS 13:27 EKG-ADULT Returned. EDMS 16:38 ECG/EKG was scanned into [employer] and attached to record. gb 16:38 Trend VS was scanned into bluebird bio and attached to record. gb Administered Medications: 06/23 21:59 Drug: Nitro-Bid 1 inches [Nitro-Bid 2 % transdermal ointment (1 inches)] Route: af2 Transdermal; Site: anterior chest wall; 22:32 Drug: Labetalol 10 mg [labetalol 5 mg/mL intravenous solution (2 mL)] Route: IVP; Rate: af2 bolus; Infused Over: 2 mins; Site: left antecubital; 06/24 01:41 Drug: Labetalol 100 mg [labetalol 100 mg tablet (1 tabs)] Route: PO; af2 Attachments: 16:38 Trend VS gb Order Results: Lab Order: Basic Metabolic Profile; SPEC'M 06/23/16 21:46 Test: GLUCOSE, FASTING; Value: 117; Range: 70-105; Abnormal: Above high normal; Units: MG/DL; Status: F Test: BLOOD UREA NITROGEN; Value: 23; Range: 7-18; Abnormal: Above high normal; Units: MG/DL; Status: F Test: CREATININE FOR GFR; Value: 1.25; Range: 0.70-1.30; Units: MG/DL; Status: F Test: GLOMERULAR FILTRATION RATE; Value: > 60.0; Range: >60; Status: F Test: SODIUM LEVEL; Value: 140; Range: 136-145; Units: MEQ/L; Status: F Test: POTASSIUM SERUM; Value: 3.5; Range: 3.5-5.1; Units: MEQ/L; Status: F Test: CHLORIDE LEVEL; Value: 104; Range: 98-107; Units: MEQ/L; Status: F Test: CARBON DIOXIDE LEVEL; Value: 26; Range: 21-32; Units: MEQ/L; Status: F Test: ANION GAP; Value: 10; Range: 8-16; Units: MEQ/L; Status: F Test: CALCIUM LEVEL; Value: 9.2; Range: 8.5-10.1; Units: MG/DL; Status: F Test Note: ; Units are mL/min/1.73 m2 Chronic Kidney Disease Staging per NKF: Stage I & II GFR >=60 Normal to Mildly Decreased Stage III GFR 30-59 Moderately Decreased Stage IV GFR 15-29 Severely Decreased Stage V GFR <15 Very Little GFR Left ESRD GFR <15 on PLOW SHAKER Lab Order: CBC with Diff; SPEC'M 06/23/16 21:46 Test: WHITE BLOOD COUNT; Value: 8.4; Range: 4.0-10.0; Units: K/mm3; Status: F Test: RED BLOOD COUNT; Value: 5.06; Range: 4.30-6.10; Units: M/mm3; Status: F Test: HEMOGLOBIN; Value: 14.3; Range: 14.0-18.0; Units: g/dl; Status: F Test: HEMATOCRIT; Value: 42.0; Range: 42.0-52.0; Units: %; Status: F Test: MEAN CORPUSCULAR VOLUME; Value: 83.0; Range: 80.0-96.0; Units: fl; Status: F Test: MEAN CORPUSCULAR HEMOGLOBIN; Value: 28.4; Range: 27.0-33.0; Units: pg; Status: F Test: MEAN CORPUSCULAR HGB CONC; Value: 34.2; Range: 32.0-36.5; Units: g/dl; Status: F Test: RED CELL DISTRIBUTION WIDTH; Value: 12.4; Range: 11.5-14.5; Units: %; Status: F Test: PLATELET COUNT, AUTOMATED; Value: 220; Range: 150-450; Units: k/mm3; Status: F Test: NEUTROPHILS %; Value: 61.4; Range: 36.0-66.0; Units: %; Status: F Test: LYMPH %; Value: 27.9; Range: 24.0-44.0; Units: %; Status: F Test: MONO %; Value: 6.7; Range: 0.0-5.0; Abnormal: Above high normal; Units: %; Status: F Test: EOS %; Value: 1.5; Range: 0.0-3.0; Units: %; Status: F Test: BASO %; Value: 0.8; Range: 0.0-1.0; Units: %; Status: F Test: LARGE UNSTAINED CELL %; Value: 1.8; Range: 0.0-4.0; Units: %; Status: F Test: NEUTROPHILS #; Value: 5.2; Range: 1.8-7.7; Units: K/mm3; Status: F Test: LYMPH #; Value: 2.5; Range: 1.5-4.5; Units: K/mm3; Status: F Test: MONO #; Value: 0.6; Range: 0.0-0.8; Units: K/mm3; Status: F Test: EOS #; Value: 0.1; Range: 0.0-0.50; Units: K/mm3; Status: F Test: BASO #; Value: 0.1; Range: 0.0-0.2; Units: K/mm3; Status: F Test: LARGE UNSTAINED CELL #; Value: 0.2; Range: 0.0-0.4; Units: K/mm3; Status: F Lab Order: Cardiac Injury Profile; SPEC'M 06/23/16 21:46 Test: CPK CREATINE PHOSPHOKINASE; Value: 120; Range: 39-308; Units: U/L; Status: F Test: CK-MB VALUE MASS; Value: 1.3; Range: 0.0-3.6; Units: NG/ML; Status: F Test: MB/CK RELATIVE INDEX; Value: 1.08; Range: < OR =4; Status: F Test Note: ; DIAGNOSIS CRITERIA MMB ng/ml Relative Index (RI) NON-AMI < or = 5 N/A LUCERO ZONE > 5 < or = 4 AMI > 5 > 4 Lab Order: Troponin; SPEC'M 06/23/16 21:46 Test: TROPONIN I; Value: < 0.02; Range: < 0.10; Units: NG/ML; Status: F Test Note: ; Troponin I Reference Interval for [employer] LOCI: 99th Percentile= 0.00-0.045 ng/ml Risk Stratification: <= 0.10 ng/ml Decreased Risk for Adverse Clinical Events. 0.10-1.50 ng/ml Increased Risk for Adverse Clinical Events. Evaluation of additional criterion and/or repeat testing in 2-6 hours is suggested to rule out myocardial damage. >= 1.50 ng/ml Indicative of Myocardial Injury. Lab Order: Magnesium Level; [facility]' 06/23/16 21:46 Test: MAGNESIUM LEVEL; Value: 1.8; Range: 1.8-2.4; Units: MG/DL; Status: F Lab Order: Phosphorous Level; [facility] 06/23/16 21:46 Test: PHOSPHORUS LEVEL; Value: 3.5; Range: 2.5-4.9; Units: MG/DL; Status: F Lab Order: CARDIAC INJURY PROFILE; [facility] 06/23/16 00:08 Test: CPK CREATINE PHOSPHOKINASE; Value: 106; Range: 39-308; Units: U/L; Status: F Test: CK-MB VALUE MASS; Value: 1.0; Range: 0.0-3.6; Units: NG/ML; Status: F Test: MB/CK RELATIVE INDEX; Value: 0.94; Range: < OR =4; Status: F Test Note: ; DIAGNOSIS CRITERIA MMB ng/ml Relative Index (RI) NON-AMI < or = 5 N/A LUCERO ZONE > 5 < or = 4 AMI > 5 > 4 Lab Order: TROPONIN; [facility] 06/23/16 00:08 Test: TROPONIN I; Value: < 0.02; Range: < 0.10; Units: NG/ML; Status: F Test Note: ; Troponin I Reference Interval for [employer] [place] LOCI: 99th Percentile= 0.00-0.045 ng/ml Risk Stratification: <= 0.10 ng/ml Decreased Risk for Adverse Clinical Events. 0.10-1.50 ng/ml Increased Risk for Adverse Clinical Events. Evaluation of additional criterion and/or repeat testing in 2-6 hours is suggested to rule out myocardial damage. >= 1.50 ng/ml Indicative of Myocardial Injury. Radiology Order: EKG-ADULT Test: EKG-ADULT REASON FOR EXAMINATION: Chest Pain; Stationary ECG Study; [facility] - ED; ; Test Date: 2016-06-23; Pat Name: JESE OLIVAS Department:; Room: -; Gender: M Energy Assistant: jmaria guadalupe; : 1975 Requested By: PARRISH Abreu; Order Number: [id number] Reading MD: Mayra Roach; Measurements; Intervals [place]; Rate: 98 P: 47; ME: 212 QRS: -15; QRSD: 105 T: 53; QT: 352; QTc: 450; Interpretive Statements; SINUS RHYTHM WITH FIRST DEGREE AV BLOCK; LAD; BASELINE WANDERING MAY AFFECT READING; NO OLD ECG FOR COMPARISON; Electronically Signed On 06-24-2016 12:54:22 EST by Mayra Roach; Radiology Order: Chest, 2 View (pa\E\lat) Test: Chest, 2 View (pa\E\lat) REASON FOR EXAMINATION: Chest Pain; CHEST PA AND LATERAL: 06/23/2016.; ; Clinical history: Chest pain.; ; Findings: No prior study. Two view show lungs well inflated and without; infiltrate, effusion, atelectasis or mass. The heart, mediastinal and hilar; contours are normal. There is no free air, focal bone lesion or pneumothorax.; ; Impression:; ; 1. No acute cardiopulmonary change.; ; ; Signed by; Aquilino Nicole MD 06/24/2016 07:31 P; Radiology Order: ELECTROCARDIOGRAM ADULT Test: ELECTROCARDIOGRAM ADULT REASON FOR EXAMINATION: REPEAT; Stationary ECG Study; [facility]; ; Test Date: 2016-06-24; Pat Name: JESE OLIVAS Department:; Room: -; Gender: M Energy Assistant: jv; : 1975 Requested By: EMERGENCY ROOM; Order Number: [id number] Reading MD: Debby Dougherty; Measurements; Intervals [place]; Rate: 70 P: 50; ME: 183 QRS: -5; QRSD: 103 T: 75; QT: 412; QTc: 445; Interpretive Statements; SINUS RHYTHM T-WAVE ABNORMALITY LEFT AXIS NO PRIOR; ; Electronically Signed On 06-24-2016 8:53:48 EST by Debby Dougherty; Outcome: 01:13 Discharge ordered by Provider. gk1 01:44 Discharge Assessment: Patient awake, alert and oriented x 3. No cognitive and/or af2 functional deficits noted. Patient verbalized understanding of disposition instructions. patient administered narcotics - no. The following High Risk Discharge criteria are identified: None. Discharged to home ambulatory. Condition: stable. Discharge instructions given to patient, Instructed on discharge instructions, follow up and referral plans. medication usage, Demonstrated understanding of instructions, medications, Pt was receptive of discharge instructions/ teaching. No special radiology studies were completed. Property :Personal belongings accompany Pt. 01:45 Patient left the ED. af2 Signatures: Dispatcher [employer] EDMS Michelle Ortiz, RN RN Kamryn Perry, Robert Reg Parrish Veloz, DO DO mm11 Joselyn Domingo Amber, RN RN af2 Pamela Chacon Jose, Ayad Jara, DO DO gk1 Chart Complete ALONSO
--- NOTE | 2016-06-26 02:46 | EDDOCDS ---
Physician Documentation [facility] Name: Jeff Olivas Age: 41 yrs Sex: Male : 1975 Arrival Date: 06/23/2016 Time: 21:31 Bed 11 Private MD: Orlando Araya Disposition: 06/24 01:18 I have independently interviewed and examined the patient, and I agree with the mm11 investigation, diagnosis and treatment plan as documented by the Resident. Disposition: 06/24/16 01:13 Discharged to Home/Self Care. Impression: Essential (primary) hypertension - Hypertensive Urgency, Chest pain, unspecified, Other chest pain. - Condition is Stable. - Discharge Instructions: Nonspecific Chest Pain, Hypertension, Nonspecific Chest Pain, Guyz-gb-Okej, Hypertension, Upqd-kq-Otka, DASH Eating Plan. - Prescriptions for labetalol 100 mg Oral tablet - take 1 tablet by ORAL route 2 times per day; 60 tablet. - Medication Reconciliation, Local Pharmacy Hours form. - Follow up: Mer Ramirez; When: Call to arrange an appointment; Reason: Recheck today's complaints, Continuance of care, To establish care. Follow up: Grayson Camarena MD; When: 1 week; Reason: Recheck today's complaints, Continuance of care. - Problem is new. - Symptoms have improved. - Notes: Follow up with PCP within 1 week and call to arrange an appointment with Cardiology in 1 week for further evaluation and management. Come back to the ED, if any worsening of your condition. Historical: - Allergies: no known allergies; - Home Meds: 1. lisinopril 40 mg Oral tab 2 tab once daily 2. metoprolol tartrate 50 mg Oral tab 1 tab once daily 3. hydrochlorothiazide 25 mg Oral tab 1 tab once daily - PMHx: Hypertension; - Social history: Smoking status: other No barriers to communication noted, The patient speaks fluent Yakut. - Family history: Not pertinent. - : The pt / caregiver states he / she is not on anticoagulants. Home medication list is obtained from the patient. - Exposure Risk Screening:: None identified. Vital Signs: 06/23 21:34 BP 221 / 131 RA Sitting (auto/lg); Pulse 102; Resp 16; Temp 98.9(O); Pulse Ox 97% on sew R/A; Weight 117.93 kg / 259.99 lbs; Height 5 ft. 11 in. (180.34 cm); Pain 3/; 21:35 BP 205 / 141 LA Sitting (auto/lg); sew 21:54 BP 192 / 128 (auto/); af2 21:54 Pulse 90 MON; Resp 18 S; Pulse Ox 92% on R/A; af2 22:09 BP 176 / 106 (auto/); af2 22:09 Pulse 84 MON; Resp 18 S; Pulse Ox 95% on R/A; af2 22:24 BP 168 / 95 (auto/); af2 22:24 Pulse 88 MON; Resp 18 S; Pulse Ox 96% on R/A; af2 22:39 BP 153 / 87 (auto/); af2 22:39 Pulse 80 MON; Resp 18 S; Pulse Ox 93% on R/A; af2 22:54 BP 157 / 90 (auto/); af2 22:54 Pulse 80 MON; Resp 18 S; Pulse Ox 95% on R/A; af2 23:09 BP 160 / 100 (auto/); af2 23:09 Pulse 76 MON; Resp 18 S; Pulse Ox 95% on R/A; af2 23:24 BP 160 / 104 (auto/); af2 23:24 Pulse 76 MON; Resp 18 S; Pulse Ox 94% on R/A; af2 23:39 BP 142 / 92 (auto/); af2 23:39 Pulse 74 MON; Resp 18 S; Pulse Ox 95% on R/A; af2 23:54 BP 156 / 93 (auto/); af2 23:54 Pulse 78 MON; Resp 18 S; Pulse Ox 94% on R/A; af2 06/24 00:09 BP 145 / 87 (auto/); af2 00:09 Pulse 78 MON; Resp 18 S; Pulse Ox 95% on R/A; af2 01:44 BP 144 / 84; Pulse 78; Resp 18 S; Temp 98.0(TE); Pulse Ox 96% on R/A; af2 06/23 21:34 Body Mass Index 36.26 (117.93 kg, 180.34 cm) sew MDM: 06/23 21:40 ECG WITH READING ER PHYS+CARDIAG ordered. EDMS 21:47 Nitro-Bid Ointment 2 % 1 inches Transdermal once ordered. mm11 22:13 Labetalol 10 mg IVP at bolus once over 2 mins ordered. gk1 22:16 Cable Television Technician/Pulse Ox/q 30 min VS ordered. gk1 22:16 IV Saline Lock ordered. gk1 22:16 Rhythm Strip to chart ordered. gk1 22:16 Undress patient appropriately for examination ordered. gk1 22:17 Basic Metabolic Profile Ordered. EDMS 22:17 CBC with Diff Ordered. EDMS 22:17 Cardiac Injury Profile Ordered. EDMS 22:17 Troponin Ordered. EDMS 22:17 Magnesium Level Ordered. EDMS 22:17 Phosphorous Level Ordered. EDMS 22:17 Creatine Phosphokinase Ordered. EDMS 22:18 Chest, 2 View (pa\E\lat) Ordered. EDMS 22:50 Basic Metabolic Profile Reviewed. gk1 22:50 CBC with Diff Reviewed. gk1 22:50 Cardiac Injury Profile Reviewed. gk1 22:50 Troponin Reviewed. gk1 22:50 Magnesium Level Reviewed. gk1 22:50 Phosphorous Level Reviewed. gk1 23:02 Financial registration complete. b 23:04 [facility] Payment Agreement was scanned into [employer] and attached to record. gjb 23:57 Repeat EKG (put time details section) ordered. mm11 23:57 Redraw CIP &Troponin (put time in details section) ordered. mm11 0211 00:00 Redraw CIP &Troponin (put time in details section) complete. jlm 00:00 Repeat EKG (put time details section) complete. jlm 00:00 ELECTROCARDIOGRAM ADULT ordered. EDMS 00:01 CARDIAC INJURY PROFILE Ordered. EDMS 00:01 TROPONIN Ordered. EDMS 00:47 TROPONIN Reviewed. gk1 00:55 TROPONIN Reviewed. gk1 00:55 CARDIAC INJURY PROFILE Reviewed. gk1 01:04 Labetalol 100 mg PO once ordered. gk1 10:15 T-Sheet-- Draft Copy was scanned into [employer] and attached to record. gb 16:38 ECG/EKG was scanned into [employer] and attached to record. gb 16:38 Trend VS was scanned into [employer] and attached to record. gb Administered Medications: 06/23 21:59 Drug: Nitro-Bid 1 inches [Nitro-Bid 2 % transdermal ointment (1 inches)] Route: af2 Transdermal; Site: anterior chest wall; 22:32 Drug: Labetalol 10 mg [labetalol 5 mg/mL intravenous solution (2 mL)] Route: IVP; Rate: af2 bolus; Infused Over: 2 mins; Site: left antecubital; 06/24 01:41 Drug: Labetalol 100 mg [labetalol 100 mg tablet (1 tabs)] Route: PO; af2 Signatures: Dispatcher [employer] Michelle Gupta, Kamryn Davila RN, mcp, Robert Reg gb Franklyn Garcia, DO mm11 Monica Walsh, Legislative Director Unit Avril Hernandez RN RN af2 Pamela Chacon gjb Ayad Sutherland, DO DO gk1 The chart was reviewed and I authenticate all verbal orders and agree with the evaluation and treatment provided.Attachments: 06/23 23:04 [facility] Payment Agreement gjb 06/24 10:15 T-Sheet-- Draft Copy gb 16:38 ECG/EKG gb Chart Complete MTDD
== END 2016-06-24 01:45 | disposition home or self-care (01) ==
LOC: M ED 21:31
DX: I10 Essential (primary) hypertension (principal); R07.89 Other chest pain; Z79.899 Other long term (current) drug therapy

== ENCOUNTER 2016-09-01 14:53 | Emergency (ER) | payer OTHER ==
[~2016-09-01] VITALS: Ht 180.3 cm; Wt 113.4 kg
[2016-09-01] MEDS ORDERED: CHLO50TA PO (15:11)
[2016-09-01] MEDS ORDERED: AMLO10TA2 PO (15:11)
[2016-09-01] MEDS ORDERED: VALS1TAB48 PO (15:11)
[2016-09-01] MEDS ORDERED: LABE10TAB PO (15:11)
[2016-09-01] MEDS ORDERED: NITROGLYCERIN 0.4 MG SUBL TABLET SL PRN (15:30)
[2016-09-01] MEDS ORDERED: ASPIRIN 81 MG CHEW TABLET PO ONE (15:30)
[2016-09-01] MEDS ORDERED: LABETALOL HCL 100 MG/20 ML VIAL IV STA (15:33)
[2016-09-01 15:34] LABS: BASO # 0.1 K/mm3 (0.0-0.2); BASO % 0.8 % (0.0-1.0); EOS # 0.7 K/mm3 (0.0-0.50); EOS % 8.1 % (0.0-3.0); LARGE UNSTAINED CELL # 0.1 K/mm3 (0.0-0.4); LARGE UNSTAINED CELL % 1.3 % (0.0-4.0); LYMPH # 2.2 K/mm3 (1.5-4.5); LYMPH % 22.7 % (24.0-44.0); MEAN CORPUSCULAR HGB CONC 34.6 g/dl (32.0-36.5); MEAN CORPUSCULAR VOLUME 83.9 fl (80.0-96.0); MONO # 0.6 K/mm3 (0.0-0.8); MONO % 6.5 % (0.0-5.0); NEUTROPHILS # 5.6 K/mm3 (1.8-7.7); NEUTROPHILS % 60.5 % (36.0-66.0); PLATELET COUNT, AUTOMATED 200 k/mm3 (150-450); RED CELL DISTRIBUTION WIDTH 12.7 % (11.5-14.5); WHITE BLOOD COUNT 9.2 K/mm3 (4.0-10.0)
[2016-09-01 15:40] VITALS: BP 148/98
[2016-09-01 15:43] LABS: INR 0.95
--- NOTE | 2016-09-01 15:54 | REP ---
Portable chest, AP view, patient sitting: Comparison is the PA and lateral chest dated 06/23/2016. The lung sharma are clear. The cardiac size is normal. The ira, mediastinum, and bony thorax are unremarkable. Impression: Negative portable chest. There is no interval change Signed by Marco Mireles MD 09/01/2016 03:44 P
[2016-09-01 15:57] LABS: ANION GAP 5 MEQ/L (8-16); BLOOD UREA NITROGEN 17 MG/DL (7-18); CALCIUM LEVEL 9.2 MG/DL (8.5-10.1); CARBON DIOXIDE LEVEL 30 MEQ/L (21-32); CHLORIDE LEVEL 102 MEQ/L (98-107); CREATININE FOR GFR 1.03 MG/DL (0.70-1.30); GLOMERULAR FILTRATION RATE > 60.0 (>60); GLUCOSE, FASTING 102 MG/DL (70-105); POTASSIUM SERUM 3.7 MEQ/L (3.5-5.1); SODIUM LEVEL 137 MEQ/L (136-145)
[2016-09-01 16:45] VITALS: BP 126/92
--- NOTE | 2016-09-01 20:39 | ECGEPIP ---
Stationary ECG Study [facility] - ED Test Date: 2016-09-01 Pat Name: JESE PAGAN Department: Room: - Gender: M Distribution Technician: : 1975 Requested By: Joselyn Contreras Order Number: [id number] Reading MD: Joselyn Contreras Measurements Intervals [place] Rate: 67 P: 61 [place]: 199 QRS: 4 QRSD: 102 T: 66 QT: 383 QTc: 405 Interpretive Statements SINUS RHYTHM SIMILAR 06/24/16 Electronically Signed On 09-01-2016 20:39:17 EDT by Joselyn Contreras
== END 2016-09-01 16:45 | disposition home or self-care (01) ==
LOC: M ED 15:34
DX: R07.9 Chest pain, unspecified (principal); I25.10 Atherosclerotic heart disease of native coronary artery without angina pectoris; I10 Essential (primary) hypertension; Z87.891 Personal history of nicotine dependence; Z79.899 Other long term (current) drug therapy

== ENCOUNTER → 2016-10-10 | Outpatient (CLI) | payer OTHER ==
[~2016-10-10] MED LIST: AMLO10TA2 PO; CHLO50TA PO; LABE10TAB PO; VALS1TAB48 PO
--- NOTE | 2016-10-23 07:48 | SLEEPCENT ---
DATE OF PROCEDURE: 10/10/2016 ORDERED BY: Nohemi Aguayo. INTERPRETATION: Nocturnal polysomnography was performed due to concern for the obstructive sleep apnea syndrome in this patient with a history of excessive somnolence and loud snoring. 7 hours and 42 minutes of data were reviewed. There were 317 minutes of sleep identified. Sleep latency was prolonged at 31 minutes. REM latency was prolonged at 189 minutes. Sleep architecture was fragmented with some REM identified late in the study. There were 3 REM periods appreciated. Overall sleep efficiency was 69%. The patient's EKG showed an underlying sinus rhythm with occasional PVCs. Rate variability was seen surrounding respiratory events. Rate ranged 60-82 beats per minute. EEG showed reasonably normal wave forms for awake and sleep. There were 342 respiratory events identified of 10 seconds in duration or greater for an apnea-hypopnea index of 64.6. The events were primarily obstructive not exclusive to sleep stage nor body posture. Arousals with respiratory events occurred 21.4 times per hour and oxygen desaturations were seen into the 70s. Remaining measures of sleep physiology were normal. IMPRESSION: Severe obstructive sleep apnea syndrome (G47.33). Apnea-hypopnea index 64.6. RECOMMENDATION: The patient should be referred for formal sleep evaluation with in laboratory pressure titration at his earliest convenience. In the interim, alcohol and sedative avoidance should be practiced and caution exercised during the operation of motor vehicles. edited: 10/23/2016 1521 tkf MTDD
== END ==
LOC: M SLEEP 19:59
PROVIDERS: ATTEND Nurse Practitioner Adult Health
DX: G47.33 Obstructive sleep apnea (adult) (pediatric) (principal)

== ENCOUNTER → 2016-11-05 | Outpatient (CLI) | payer OTHER ==
--- NOTE | 2016-11-07 09:40 | SLEEPCENT ---
DATE OF STUDY: 11/05/2016 ORDERING PROVIDER: Nohemi Aguayo NP Nocturnal polysomnography was performed for the titration of pressure therapy in this patient with severe obstructive sleep apnea syndrome, apnea-hypopnea index of 64. For testing, the patient was fit with a ResMed Quattro full face mask of medium size. 4 cm of water pressure were applied to the circuit, and the lights were extinguished. 7 hours and 37 minutes of data were reviewed. There were 373 minutes of sleep identified. Sleep latency was mildly prolonged at 19 minutes. Rapid eye movement (REM) latency was normal at 63 minutes. Sleep architecture improved with optimal pressure therapy. There were three REM periods appreciated. Overall sleep efficiency 83.6%. Electrocardiogram (EKG) showed a sinus rhythm with an average heart rate of 62 beats per minute. Electroencephalogram (EEG) showed normal waveforms for awake and sleep. Respiratory events were found best palliated with continuous positive airway pressure (CPAP) at a pressure of +9. There was minimal limb activity. IMPRESSION: Obstructive sleep apnea syndrome (G47.33). RECOMMENDATION: Nightly use of pressure therapy 9 cm of water.
== END ==
LOC: M SLEEP 19:48
PROVIDERS: ATTEND Nurse Practitioner Adult Health
DX: G47.33 Obstructive sleep apnea (adult) (pediatric) (principal)

== ENCOUNTER → 2016-11-08 | Outpatient (REF) | payer OTHER | LOC: M SMT 08:30 | PROVIDERS: ATTEND Urology | DX: Z30.2 Encounter for sterilization (principal) ==

== ENCOUNTER → 2017-01-25 | Outpatient (REF) | payer OTHER ==
[2017-01-25 09:19] LABS: IMMMOTILE SPERM CENTRIFUGED ABSENT (ABSENT); IMMOTILE SPERM ABSENT (ABSENT); MOTILE SPERM ABSENT (ABSENT); MOTILE SPERM CENTRIFUGED ABSENT (ABSENT); SPERM ABNORMAL FORMS WBC'S NOTED
== END ==
LOC: M SMT 08:00
PROVIDERS: ATTEND Urology
DX: Z30.8 Encounter for other contraceptive management (principal)

== ENCOUNTER 2017-07-17 10:14 | Day surgery (SDC) | payer OTHER ==
[2017-07-17] MEDS ORDERED: LIDOCAINE 2% INJ 100 MG/5 ML SDV (FOR ANES.) As Ordered (10:41)
[2017-07-17] MEDS ORDERED: PROPOFOL 200 MG/20 ML VIAL As Ordered ×2 (10:41→11:05)
[2017-07-17] MEDS ORDERED: NS 1,000 ML IV (11:00)
== END 2017-07-17 12:28 | disposition home or self-care (01) ==
LOC: M OPP 10:14
DX: R13.10 Dysphagia, unspecified (principal); F45.8 Other somatoform disorders; K22.8 Other specified diseases of esophagus; K29.70 Gastritis, unspecified, without bleeding; R07.89 Other chest pain; I10 Essential (primary) hypertension; I71.4 Abdominal aortic aneurysm, without rupture; M10.9 Gout, unspecified; K21.9 Gastro-esophageal reflux disease without esophagitis; R12 Heartburn; F41.9 Anxiety disorder, unspecified; G47.30 Sleep apnea, unspecified; R06.83 Snoring; E66.9 Obesity, unspecified; Z79.899 Other long term (current) drug therapy; Z80.8 Family history of malignant neoplasm of other organs or systems
CPT/HCPCS: 43239

== ENCOUNTER → 2019-07-03 | Outpatient (REF) | payer OTHER ==
[~2019-07-03] MED LIST changes: -AMLO10TA2 PO; +AMLO10TA5 PO; +CHLO125TA PO; +MULT1TAB10 PO; +OMEP40CA97 PO; +TARTCAP PO; -VALS1TAB48 PO; +VALS1TAB68 PO; +VITA100067 PO; +[UNRECOGNIZED DRUG - OTHER] PO
== END ==
LOC: M LAB REF 12:26
PROVIDERS: ATTEND Nurse Practitioner Family
DX: M10.9 Gout, unspecified (principal)

== ENCOUNTER → 2020-01-02 | Outpatient (REF) | payer OTHER ==
[~2020-01-02] MED LIST changes: -AMLO10TA5 PO; +AMLO1TAB25 PO
== END ==
LOC: M LAB REF 12:40
PROVIDERS: ATTEND Registered Nurse
DX: M10.9 Gout, unspecified (principal)

== ENCOUNTER → 2020-07-05 | Outpatient (REF) | payer OTHER ==
[~2020-07-05] MED LIST changes: +LABE100T4 PO; -LABE10TAB PO
== END ==
LOC: M LAB REF 12:31
PROVIDERS: ATTEND Registered Nurse
DX: M10.9 Gout, unspecified (principal)

== ENCOUNTER 2020-11-05 03:03 | Emergency (ER) | payer OTHER ==
[~2020-11-05] VITALS: Ht 180.3 cm; Wt 122.4 kg
[~2020-11-05 03:03] MED LIST changes: +OMEP40CA4 PO; -OMEP40CA97 PO
[2020-11-05] MEDS ORDERED: CAND32TA9 PO ×2 (03:21→06:48)
[2020-11-05 03:45] LABS: BASO % 0.3 % (0.0-1.0); EOS % 0.2 % (0.0-3.0); HEMATOCRIT 46.5 % (42.0-52.0); LYMPH # 1.1 10^3/uL (1.5-5.0); LYMPH % 8.8 % (24.0-44.0); MEAN CORPUSCULAR HGB CONC 34.4 g/dl (32.0-36.5); MEAN CORPUSCULAR VOLUME 84.2 fl (80.0-96.0); MONO # 0.6 10^3/uL (0.0-0.8); MONO % 4.3 % (2.0-8.0); NEUTROPHILS # 10.9 10^3/uL (1.5-8.5); PLATELET COUNT, AUTOMATED 246 10^3/uL (150-450); RED BLOOD COUNT 5.52 10^6/uL (4.30-6.10); WHITE BLOOD COUNT 12.7 10^3/uL (4.0-10.0)
[2020-11-05] MEDS ORDERED: MORPHINE 2 MG/ML 1ML VIAL (J2270) IV PRN (04:20)
[2020-11-05 04:21] LABS: ALBUMIN 4.4 GM/DL (3.2-5.2); ALT/SGPT 72 U/L (12-78); BILIRUBIN,DIRECT 0.2 MG/DL (0.0-0.2); BILIRUBIN,TOTAL 0.5 MG/DL (0.2-1.0); BLOOD UREA NITROGEN 17 MG/DL (7-18); CALCIUM LEVEL 9.9 MG/DL (8.5-10.1); CARBON DIOXIDE LEVEL 30 MEQ/L (21-32); CHLORIDE LEVEL 98 MEQ/L (98-107); CREATININE FOR GFR 1.01 MG/DL (0.70-1.30); GLOMERULAR FILTRATION RATE > 60.0 (>60); GLUCOSE, FASTING 148 MG/DL (70-100); LIPASE 99 U/L (73-393); POTASSIUM SERUM 3.8 MEQ/L (3.5-5.1); SODIUM LEVEL 135 MEQ/L (136-145); TOTAL PROTEIN 8.4 GM/DL (6.4-8.2)
[2020-11-05] MEDS ORDERED: GI COCKTAIL 50ML BTL(HYOSCYAMINE/MAALOX/LIDOCAINE VISCOUS)(1:3:1) PO ONE (04:30)
[2020-11-05] MEDS ORDERED: ISOVUE-370 76% 100ML VIAL As Ordered ONE (04:32)
[2020-11-05 04:48] LABS: CK-MB VALUE MASS 1.7 NG/ML (<3.6); CPK CREATINE PHOSPHOKINASE 328 U/L (39-308); MB/CK RELATIVE INDEX 0.52 (< OR =4); TROPONIN I < 0.02 NG/ML (< 0.10)
--- NOTE | 2020-11-05 05:39 | ECGEPIP ---
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
--- NOTE | 2020-11-05 06:08 | REPVR ---
PROCEDURE INFORMATION: Exam: CT Abdomen And Pelvis With Contrast Exam date and time: 11/05/2020 4:27 AM Age: 45 years old Clinical indication: Abdominal pain; Periumbilical TECHNIQUE: Imaging protocol: Computed tomography of the abdomen and pelvis with contrast. Radiation optimization: All CT scans at this facility use at least one of these dose optimization techniques: automated exposure control; mA and/or kV adjustment per patient size (includes targeted exams where dose is matched to clinical indication); or iterative reconstruction. Contrast material: ISO; Contrast volume: 100 ml; Contrast route: INTRAVENOUS (IV); COMPARISON: No relevant prior studies available. FINDINGS: Liver: The liver attenuation is 41 Hounsfield units and the spleen is 98 Hounsfield units. The liver at mid clavicular line measures 13.6 cm. Gallbladder and bile ducts: Normal. No calcified stones. No ductal dilation. Pancreas: Normal. No ductal dilation. Spleen: Normal. No splenomegaly. Adrenal glands: Normal. No mass. Kidneys and ureters: Normal. No hydronephrosis. Stomach and bowel: There are a few colonic diverticula without diverticulitis. Mildly distended segments of lower abdominal small bowel with the de mitosis supplying mesentery and collapsed distal small bowel consistent with a small bowel obstruction. There is a tapering transition anteriorly which corresponds to some wall thickening of the small bowel suggesting enteritis as the etiology for obstruction. The transition is noted on series 202, images # [id number]. Appendix: A normal appendix is seen. Intraperitoneal space: Minimal free fluid in the pelvis which is likely reactive with a Hounsfield measurement of 9. Vasculature: Unremarkable. No abdominal aortic aneurysm. Lymph nodes: Unremarkable. No enlarged lymph nodes. Urinary bladder: Unremarkable as visualized. Reproductive: Unremarkable as visualized. Bones/joints: Unremarkable. No acute fracture. Soft tissues: Unremarkable. IMPRESSION: 1. Small-bowel obstruction with a point of transition deep and to the left of the umbilicus which corresponds to a segment of small bowel wall thickening which may reflect enteritis as the etiology of obstruction. There is edema of the supplying mesentery to the thick walled segments and to a lesser degree the dilated segments of small bowel. 2. Minimal free fluid in the pelvis which is likely reactive. 3. Fatty infiltration of the liver. Electronically signed by: Juan Walsh On 11/05/2020 06:07:40 AM
[2020-11-05] MEDS ORDERED: CHLO25TA PO (06:48)
[2020-11-05] MEDS ORDERED: ALLO10TA PO (06:48)
[2020-11-05] MEDS ORDERED: VITMTA PO (06:48)
[2020-11-05] MEDS ORDERED: FLAX100012 PO (06:48)
[2020-11-05 07:19] LABS: RSV AMPLIFICATION NEGATIVE (NEGATIVE)
[2020-11-05 10:32] LABS: BASO % 0.3 % (0.0-1.0); EOS % 0.1 % (0.0-3.0); HEMATOCRIT 43.7 % (42.0-52.0); LYMPH # 1.4 10^3/uL (1.5-5.0); LYMPH % 14.6 % (24.0-44.0); MEAN CORPUSCULAR HEMOGLOBIN 28.8 pg (27.0-33.0); MEAN CORPUSCULAR HGB CONC 34.3 g/dl (32.0-36.5); MONO # 0.8 10^3/uL (0.0-0.8); MONO % 7.9 % (2.0-8.0); NEUTROPHILS # 7.3 10^3/uL (1.5-8.5); NEUTROPHILS % 76.8 % (36.0-66.0); PLATELET COUNT, AUTOMATED 219 10^3/uL (150-450); WHITE BLOOD COUNT 9.5 10^3/uL (4.0-10.0)
--- NOTE | 2020-11-05 10:47 | REP ---
INDICATION: SBO. COMPARISON: CT earlier today. TECHNIQUE: Frontal view chest, supine and erect views of the abdomen. FINDINGS: There is no evidence of free intraperitoneal air. There are moderately dilated small bowel loops in the abdomen consistent with small bowel obstruction as seen on CT scan. Excreted contrast is seen in a mildly distended urinary bladder. Adjacent phleboliths are seen in the pelvis. There are mild degenerative changes of the spine. No infiltrate is seen in either lung. The heart and mediastinum are unremarkable. IMPRESSION: Moderately dilated small bowel loops in the abdomen consistent with small bowel obstruction, as seen on today's CT scan. <Electronically signed by Marco Busch > 11/05/20 1041
[2020-11-05 12:45] VITALS: BP 159/98
== END 2020-11-05 13:01 | disposition home or self-care (01) ==
LOC: M ED 03:03
DX: K56.699 Other intestinal obstruction unspecified as to partial versus complete obstruction (principal); I10 Essential (primary) hypertension; K21.9 Gastro-esophageal reflux disease without esophagitis; K76.0 Fatty (change of) liver, not elsewhere classified
CPT/HCPCS: 74021; 74177; 80048; 80076; 81001; 82550; 82553; 83605; 83690; 84484; 85025; 87631; 93005; 96374; 99285; J2270; Q9967

== ENCOUNTER → 2021-02-11 | Outpatient (CLI) | payer OTHER ==
[~2021-02-11] MED LIST changes: +ALLO10TA PO; +CAND32TA9 PO; +CHLO25TA PO; +E-Z-PAQUE 96% w/w SUSP 176GM BTL As Ordered ONE; +FLAX100012 PO; +VITMTA PO
--- NOTE | 2021-02-11 16:55 | REP ---
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 SB OBST. COMPARISON: CT dated 11/05/2020 TECHNIQUE: This procedure was performed by Nicky Madsen RUST, under the direct supervision of Dr. Horner. Images were reviewed with Dr. Horner prior to dictation. Liquid barium was administered and the barium column was followed through the small bowel to the level of the terminal ileum. FINDINGS: The home visits nurse film shows no organomegaly or pathological masses. The intestinal gas pattern is unremarkable. Small bowel transit time is approximately 40 minutes. Comparison was made to the CT done on 11/05/2020 when the patient had a small bowel obstruction. On today study there is no fixed angulated loops. The small bowel mucosal pattern is normal in course and caliber. There is no transition to suggest a partial small bowel obstruction. Spot filming of the terminal ileum shows it to be unremarkable. IMPRESSION: Unremarkable small bowel follow-through with a transit time of 40 minutes. 0.4 minutes of fluoroscopy time was utilized for this procedure. Some fluoroscopic images are performed with last image hold technology. These images require no additional radiation. <Electronically signed by Nicky Madsen > 02/11/21 1627 <Electronically signed by Tucker Horner > 02/11/21 1651
== END ==
LOC: M RAD 09:06
PROVIDERS: ATTEND Internal Medicine Gastroenterology
DX: K22.70 Barrett's esophagus without dysplasia (principal)

== ENCOUNTER → 2021-06-30 | Outpatient (CLI) | payer OTHER ==
[~2021-06-30] MED LIST changes: +CAND32TA18 PO; -CAND32TA9 PO; -E-Z-PAQUE 96% w/w SUSP 176GM BTL As Ordered ONE
== END ==
LOC: M LABSMTC 10:06
PROVIDERS: ATTEND Anesthesiology
DX: Z01.812 Encounter for preprocedural laboratory examination (principal); Z20.822 Contact with and (suspected) exposure to COVID-19

== ENCOUNTER 2021-07-05 10:27 | Day surgery (SDC) | payer OTHER ==
[~2021-07-05] VITALS: Ht 180.3 cm; Wt 108.0 kg
[~2021-07-05 10:27] MED LIST changes: +NS 1,000 ML IV ONE
[2021-07-05] MEDS ORDERED: propofoL 200 MG/20 ML VIAL As Ordered ONE (12:11)
[2021-07-05] MEDS ORDERED: LIDOCAINE 2% 100MG/5ML SDV (FOR ANES.) As Ordered ONE (12:11)
[2021-07-05 13:40] VITALS: BP 128/85
== END 2021-07-05 13:54 | disposition home or self-care (01) ==
LOC: M OPP 10:27
PROVIDERS: ATTEND Internal Medicine Gastroenterology
DX: Z12.11 Encounter for screening for malignant neoplasm of colon (principal); K64.8 Other hemorrhoids; K21.00 Gastro-esophageal reflux disease with esophagitis, without bleeding; K22.70 Barrett's esophagus without dysplasia; R93.3 Abnormal findings on diagnostic imaging of other parts of digestive tract; Z79.899 Other long term (current) drug therapy

== ENCOUNTER → 2023-11-27 | Outpatient (CLI) | payer OTHER ==
[~2023-11-27] MED LIST changes: -LABE100T4 PO; +LABE100T6 PO; -NS 1,000 ML IV ONE
== END ==
LOC: M PLAIMG 12:30
PROVIDERS: ATTEND Physician Assistant Medical
DX: I71.20 Thoracic aortic aneurysm, without rupture, unspecified (principal)